=== PATIENT | male | born 2000 | race Caucasian/White ===

== ENCOUNTER 2024-02-14 21:27 | Emergency (ER) | payer OTHER ==
[2024-02-14] MEDS ORDERED: Lidocaine 2% 6 ML (Jelly) SYR ONE (21:34)
[2024-02-14] MEDS ORDERED: Glucagon 1 MG/ML KIT ONE (21:35)
[2024-02-14] MEDS ORDERED: Ondansetron PF 4 MG/2 ML Vial ONE ×2 (21:35→21:38)
== END 2024-02-14 22:40 | disposition home or self-care (01) ==
LOC: CSHERS 21:27
DX: T18.128A Food in esophagus causing other injury, initial encounter (principal); F17.290 Nicotine dependence, other tobacco product, uncomplicated; W44.8XXA Other foreign body entering into or through a natural orifice, initial encounter
CPT/HCPCS: 96372; 96374; J1611; J2405